=== PATIENT | female | born 1990 | race Two or more races ===

== ENCOUNTER 2017-09-17 00:30 | Inpatient (IN) | payer BC ==
[~2017-09-17] VITALS: Ht 167.6 cm; Wt 46.5 kg
[2017-09-17 00:37] VITALS: BP 135/78
[2017-09-17] MEDS ORDERED: DEXTROSE 50% 50 ML SYR IVP ONE ×2 (00:55→00:57)
[2017-09-17] MEDS ORDERED: NACL 0.9% 1,000 ML IV SCH ×2 (01:10→05:41)
[2017-09-17] MEDS ORDERED: MORPHINE SULFATE 2 MG/ML SYR IM ONE (01:10)
[2017-09-17] MEDS ORDERED: ONDANSETRON 4 MG/2 ML VIAL IVP ONE (01:10)
--- NOTE | 2017-09-17 01:13 | NUR ---
C/O SUDDEN ABD PAIN AND CHILLS/ "SHAKINESS" X1 HOUR, PT STATES PAIN STARTED WHEN SHE WOKE UP. ABD IS FLAT, FIRM, ACTIVE BS X4, C/O GENERALIZED ABD PAIN RADIATES TO SUPERPUBIC AREA. PT DENIES UTI SYMPTOMS. PT IS AAOX4, PALE IN COLOR REDNESS NOTED TO BILATERAL HANDS, POSITIVE CMS, PT STATES "FROM LUPUS." PT LAYING IN BED SHIVERING, RESTLESS, PT PROVIDED WITH BLANKETS, COMFORT NEEDS MET AT THIS TIME, WILL FOLLOW ORDERS. PMH LUPUS, RA.
[2017-09-17] MEDS ORDERED: NACL 0.9% 1,000 ML IV ONE ×2 (01:40→03:50)
[2017-09-17 01:45] LABS: HEMOGLOBIN 11.6 g/dL (12.0-16.0); MEAN CORPUSCULAR HEMOGLOBIN 26 pg (27-31); MEAN CORPUSCULAR HGB CONC 33 g/dL (33-37); MEAN CORPUSCULAR VOLUME 77 fL (80-94); RED BLOOD CELL COUNT(AUTO) 4.57 MIL/uL (4.20-5.40); RED CELL DISTRIBUTION WIDTH 14.9 % (11.6-13.7)
[2017-09-17 01:52] LABS: ANION GAP 12.6 (8-16); CARBON DIOXIDE 27.7 mmol/L (21-32); CREATININE 0.7 mg/dL (0.6-1.3); POTASSIUM 3.3 mmol/L (3.5-5.1)
[2017-09-17 01:54] LABS: PLATELET COUNT (AUTO) 50 K/uL (140-450); WHITE BLOOD COUNT (AUTO) 3.3 K/uL (4.8-10.8)
[2017-09-17 01:55] LABS: LYMPHOCYTES % (MANUAL) 16 % (20-46)
[2017-09-17 01:57] LABS: ALBUMIN 3.6 g/dL (3.4-5.0); TOTAL BILIRUBIN 0.3 mg/dL (0.0-1.0)
[2017-09-17 02:05] LABS: APPEARANCE,URINE CLEAR (CLEAR); BILIRUBIN,URINE NEGATIVE (NEGATIVE); BLOOD, URINE NEGATIVE (NEGATIVE); COLOR,URINE YELLOW (YELLOW); LEUKOCYTE ESTERASE ,URINE NEGATIVE (NEGATIVE); NITRITE, URINE NEGATIVE (NEGATIVE); UGLUCOSE 1+ (NEGATIVE)
--- NOTE | 2017-09-17 02:05 | NUR ---
PT DECLINES MORPHINE STATES PAIN IS TOLERABLE, PT IS LYING IN BED ROOMATE AT BEDSIDE PT IS CALM COOPERATIVE WILL CONTINUE TO MONITOR
[2017-09-17 02:23] LABS: RBC,URINE 0-5 (RARE) /HPF (0-5); WBC,URINE 0-5 (RARE) /HPF (0-5)
--- NOTE | 2017-09-17 03:00 | NUR ---
PT LAYIN IN BED RESTING, WILL CONTINUE TO MONITOR.
[2017-09-17] MEDS ORDERED: KETOROLAC 15 MG/ML VIAL IVP ONE (03:55)
--- NOTE | 2017-09-17 04:45 | NUR ---
PT IN BED SLEEPING, ROOMMATE AT BEDSIDE, VSS, WILL CONTINUE TO MONITOR.
--- NOTE | 2017-09-17 05:18 | NUR ---
PHYSCIAN AT BEDSIDE, EVALUATING PT.
[2017-09-17] MEDS ORDERED: HYDROcodone/APAP 7.5/325 MG 1 TAB PO PRN (05:45)
[2017-09-17] MEDS ORDERED: ACETAMINOPHEN 325 MG TAB PO PRN ×2 (05:45→12:00)
[2017-09-17] MEDS ORDERED: ONDANSETRON 4 MG/2 ML VIAL IVP PRN (05:45)
[2017-09-17] MEDS ORDERED: PIPERACILLIN/TAZOBACTAM 3.375 GM in DEXTROSE 5% 50 ML IV ONE (05:45)
[2017-09-17] MEDS ORDERED: PIPERACILLIN/TAZOBACTAM 3.375 GM VIAL IV ONE (06:04)
[2017-09-17 06:48] LABS: PROTHROMBIN TIME 11.6 secs (10.8-13.4)
--- NOTE | 2017-09-17 06:55 | NUR ---
Patient will be admitted to care of DR. GARCIA. Admited to TELE. Will go to [id number]. Belongings list completed. Report to [facility].
--- NOTE | 2017-09-17 06:55 | NUR ---
PATIENT ADMITTED TO THE UNIT FROM ER. PATIENT REPORT RECEIVED FROM ER NURSE. NO SIGNS AND SYMPTOMS OF DISTRESS NOTED. IV SITE NOTED ON RIGHT AC. BED IN LOWEST POSITION, SIDE RAILS UP AND CALL LIGHT WITHIN REACH. WILL CONTINUE TO MONITOR.
[2017-09-17 06:56] LABS: BARBITURATE, URINE NEG. ng/ml (NEG <=200); BENZODIAZEPINE, URINE NEG. ng/mL (NEG <=200); CANNABINOID, URINE NEG. ng/mL (NEG <=50); COCAINE, URINE NEG. ng/mL (NEG <=300); OPIATE, URINE NEG. ng/mL (NEG <=2000); PHENCYCLIDINE SCREEN,URINE NEG. ng/mL (NEG <=25)
[2017-09-17 07:11] LABS: CHOL/HDL RATIO 2.2 (1-4.5); FREE T4 (FREE THYROXINE) 0.91 ng/dL (0.76-1.46); MAGNESIUM 1.7 mg/dL (1.8-2.4); PHOSPHORUS 3.8 mg/dL (2.5-4.9); THYROID STIMULATING HORMONE 7.79 uIU/mL (0.34-3.74)
--- NOTE | 2017-09-17 07:20 | NUR ---
PATIENT REPORT GIVEN TO MORNING NURSE FOR CONTINUITY OF CARE. PATIENT IS IN STABLE CONDITION.
--- NOTE | 2017-09-17 07:25 | NUR ---
RECEIVED REPORT FROM AUTOCAD NURSE. PT IS AAOX4, AMBULATORY, PT HAS IV ON THE RIGHT AC, PATENT, INTACT, FLUSHING WELL, NO S/S OF RESPIRATORY DISTRESS OR DISCOMFORT NOTED, ORIENTED PT TO ROOM, DISCUSSED PLAN OF CARE WITH PT, PT VERBALIZED UNDERSTANDING, CALL LIGHT IS WITHIN REACH, WILL CONTINUE TO MONITOR.
[2017-09-17 08:00] VITALS: BP 89/42
[2017-09-17 08:53] LABS: ANION GAP 13.9 (8-16); CARBON DIOXIDE 25.3 mmol/L (21-32); CREATININE 0.7 mg/dL (0.6-1.3); POTASSIUM 4.2 mmol/L (3.5-5.1)
--- NOTE | 2017-09-17 08:59 | NUR ---
PATIENT HAS BEEN SCREENED AND CATEGORIZED LOW NUTRITION RISK. PATIENT WILL BE SEEN WITHIN 7 DAYS OF ADMISSION. 09/23/[address]
[2017-09-17 09:06] LABS: ALBUMIN 3.1 g/dL (3.4-5.0); TOTAL BILIRUBIN 0.4 mg/dL (0.0-1.0)
[2017-09-17] MEDS: LEVOFLOXACIN 750 MG/D5W PREMIX 150 ML IV SCH (09:54)
[2017-09-17] MEDS: LACTOBACILLUS RHAMNOSUS GG 1 EACH CAP PO SCH (09:55)
[2017-09-17] MEDS: DOCUSATE SODIUM 100 MG GELCAP PO SCH ×2 (09:55→20:56)
[2017-09-17] MEDS ORDERED: POTASSIUM CHLORIDE 10 MEQ TABER PO ONE (10:55)
[2017-09-17] MEDS ORDERED: MAGNESIUM OXIDE 400 MG TAB PO SCH (11:30)
[2017-09-17 12:00] VITALS: BP 106/60
[2017-09-17] MEDS ORDERED: FUROSEMIDE 20 MG TAB PO PRN (12:00)
[2017-09-17] MEDS: metroNIDAZOLE 500 MG/NS PREMIX 100 ML IV SCH ×2 (12:39→20:56)
[2017-09-17] MEDS ORDERED: DESFLURANE 240 ML BTL INH ONE (13:10)
[2017-09-17] MEDS ORDERED: SUCCINYLCHOLINE CHLORIDE 200 MG/10 ML VIAL IVP ONE (13:10)
[2017-09-17] MEDS ORDERED: DEXAMETHASONE 4 MG/ML VIAL ONE (13:10)
[2017-09-17] MEDS ORDERED: ONDANSETRON 4 MG/2 ML VIAL ONE (13:10)
[2017-09-17] MEDS ORDERED: PROPOFOL 200 MG/20 ML VIAL IV ONE (13:10)
[2017-09-17] MEDS ORDERED: ROCURONIUM 50 MG/5 ML VIAL IV ONE (13:10)
[2017-09-17] MEDS ORDERED: HYDROmorphone PFS 2 MG/ML SYR ONE (13:13)
[2017-09-17] MEDS ORDERED: fentaNYL 0.05 MG/ML VIAL ONE (13:13)
[2017-09-17] MEDS ORDERED: BUPIVACAINE-MPF 0.25% 30 ML VIAL INJ ONE (13:18)
--- NOTE | 2017-09-17 14:08 | NUR ---
CM NOTE PER MANAGER MANAGED BACK[employer] SERVICES KASEY, SHE SPOKE WITH ZEUS OF [facility] PH# [phone] WHO SAID AUTHORIZED PATIENT STAY FOR 2 DAYS AUTH# [id number] AND THERE IS NO DOUGH MOLDER HAND YET ASSIGNED AT THIS TIME BUT TO FAX REVIEWS TO [phone]. INITIAL REVIEW FAXED TO [facility] [phone] # [phone] [facility].
[2017-09-17] MEDS: DEXT 5% / NACL 0.45% 1,000 ML IV SCH (14:10)
[2017-09-17] MEDS ORDERED: MORPHINE SULFATE 2 MG/ML SYR IVP PRN (14:15)
[2017-09-17 16:00] VITALS: BP 117/75
--- NOTE | 2017-09-17 16:01 | NUR ---
PT SLEEPING WITH FAMILY AT BEDSIDE UNABLE TO PERFORM IS
--- NOTE | 2017-09-17 19:38 | NUR ---
ENDORSED PT TO SENIOR ANIMATOR NURSE FOR CONTINUITY OF CARE. PT STABLE AT THIS TIME.
--- NOTE | 2017-09-17 19:40 | NUR ---
RECEIVED REPORT FROM DAY SHIFT RN, PATIENT RESTING IN BED, AWAKE ALERT ORIENTED X4, SISTER AT THE BEDSIDE, NO S/S OF DISTRESS NOTED, RESPIRATION EVEN AND UNLABORED, IV PATENT AND INTACT, INFUSING D51/2NS AT 80ML/HR. PLAN OF CARE DISCUSSED, CALL LIGHT WITHIN REACH, SAFETY MEASURE ENSURED, WILL CONTINUE TO MONITOR.
[2017-09-17 20:00] VITALS: BP 101/61
--- NOTE | 2017-09-17 20:13 | NUR ---
PATIENT STATED SHE HAD VOIDED ALREADY
--- NOTE | 2017-09-17 21:02 | NUR ---
DUE MEDICATION GIVEN, PATIENT TOLERATED WELL. NO S/S OF DISTRESS NOTED, RESPIRATION EVEN AND UNLABORED, CALL LIGHT WITHIN REACH, SAFETY MEASURE ENSURED, WILL CONTINUE TO MONITOR.
[2017-09-18] VITALS: BP 96/52
--- NOTE | 2017-09-18 00:32 | NUR ---
PATIENT'S BOYFRIEND IS STILL AT THE BEDSIDE, HE SAID," THE BIG BOSS SAID I COULD STAY OVER NIGHT." ASKED THE CHARGE NURSE, BUT CHARGE NURSE SAID, " NO, THE BOYFRIEND CAN NOT STAY." ASKED HIM TO LEAVE DUE TO THE HOSPITAL POLICY, THE BOYFRIEND LEFT.
--- NOTE | 2017-09-18 01:06 | NUR ---
WOUND ASSESSMENT DONE, S/P LAP APPY ON 09/17/17. THREE DERMABOND ON ABDOMEN, OPEN TO AIR, NO DRAINAGE NOTED, PATIENT WAS SLEEPING, NO PAIN REPORTED.
--- NOTE | 2017-09-18 02:32 | NUR ---
PATIENT WAS SLEEPING, BUT EASY TO AROUSE. NO S/S OF DISTRESS NOTED, RESPIRATION EVEN AND UNLABORED, CALL LIGHT WITHIN REACH, SAFETY MEASURE ENSURED, WILL CONTINUE TO MONITOR.
[2017-09-18] MEDS: DEXT 5% / NACL 0.45% 1,000 ML IV SCH (02:40)
[2017-09-18 04:00] VITALS: BP 93/55
--- NOTE | 2017-09-18 04:30 | NUR ---
BED AND BREAKFAST OPERATOR NOTIFIED ME THAT PATIENT'S HR WENT DOWN TO 47, UPON ASSESSMENT, PATIENT WAS SLEEPING, EASY TO AROUSE, NO S/S OF DISTRESS NOTED, PATIENT STATED," I AM OKAY." CALL LIGHT WITHIN REACH, SAFETY MEASURE ENSURED, WILL CONTINUE TO MONITOR.
[2017-09-18] MEDS: metroNIDAZOLE 500 MG/NS PREMIX 100 ML IV SCH (05:31)
[2017-09-18] MEDS: HYDROcodone/APAP 5/325 MG 1 TAB TAB PO PRN ×2 (05:51→11:14)
[2017-09-18 07:17] LABS: ANION GAP 10.9 (8-16); CREATININE 0.7 mg/dL (0.6-1.3); POTASSIUM 3.9 mmol/L (3.5-5.1)
--- NOTE | 2017-09-18 07:30 | NUR ---
RECEIVED ON BED AAOX4. NO SOB NOTED. NO C/O PAIN AT THIS TIME. IV TO RT AC PATENT AND INTACT. CHEST CLEAR. ABDOMNE SOFT, BOWEL SOUNDS PRESENT. WITH 3 SMALL ABDOMINAL INCISIONS WITH DERMABOND, S/P LAP APPY ON 09/17/17. NO EDEMA NOTED. INSTRUCTED PT TO CALL FOR ASSISTANCE, CALL LIGHT WITHIN REACH, PT VERBALIZED UNDERSTANDING.
--- NOTE | 2017-09-18 07:45 | NUR ---
ENDORSED PLAN OF CARE TO DAY SHIFT RN, PATIENT RESTING IN BED, IN STABLE CONDITION.
[2017-09-18 07:53] LABS: WHITE BLOOD COUNT (AUTO) 1.9 K/uL (4.8-10.8)
[2017-09-18 07:54] LABS: HEMATOCRIT 29.1 % (36-48); HEMOGLOBIN 9.7 g/dL (12.0-16.0); MEAN CORPUSCULAR HEMOGLOBIN 26 pg (27-31); MEAN CORPUSCULAR HGB CONC 33 g/dL (33-37); MEAN CORPUSCULAR VOLUME 77 fL (80-94); PLATELET COUNT (AUTO) 55 K/uL (140-450); RED BLOOD CELL COUNT(AUTO) 3.77 MIL/uL (4.20-5.40); RED CELL DISTRIBUTION WIDTH 15.8 % (11.6-13.7)
[2017-09-18 08:00] VITALS: BP 94/55
[2017-09-18] MEDS ORDERED: FERROUS GLUCONATE 324 MG TAB PO SCH (08:00)
--- NOTE | 2017-09-18 08:49 | NUR ---
CM NOTE CONCURRENT REVIEW FAXED TO [facility] [phone] # [phone] [facility] 5
[2017-09-18 08:53] LABS: EOSINOPHILS % (MANUAL) 1 % (0-4); LYMPHOCYTES % (MANUAL) 27 % (20-46); MONOCYTES % (MANUAL) 2 % (5-12)
[2017-09-18] MEDS ORDERED: ASCORBIC ACID 500 MG TAB PO SCH (09:00)
[2017-09-18 09:11] LABS: LACTATE DEHYDROGENASE 125 IU/L (119-226)
[2017-09-18] MEDS: DOCUSATE SODIUM 100 MG GELCAP PO SCH (09:50)
[2017-09-18] MEDS: LACTOBACILLUS RHAMNOSUS GG 1 EACH CAP PO SCH (09:50)
[2017-09-18] MEDS: LEVOFLOXACIN 750 MG/D5W PREMIX 150 ML IV SCH (09:51)
--- NOTE | 2017-09-18 09:59 | NUR ---
follow up IS instruct not able to do due to pt sleeping and family didnt want to wake her
[2017-09-18] MEDS ORDERED: ASCO500T45 PO (10:55)
[2017-09-18] MEDS ORDERED: DOCU-299 PO (10:55)
[2017-09-18] MEDS ORDERED: ACET-2869 PO ×2 (10:55→10:59)
[2017-09-18] MEDS ORDERED: FERR-252 PO (10:55)
--- NOTE | 2017-09-18 11:50 | NUR ---
DISCHARGE PHOTO ON ABDOMINAL INCISIONS TAKEN AND DOCUMENTED.
[2017-09-18] MEDS ORDERED: ACET-9800 PO (11:57)
[2017-09-18] MEDS ORDERED: SIMETHICONE 80 MG TAB.CHEW PO SCH (12:00)
--- NOTE | 2017-09-18 13:00 | NUR ---
DISCHARGE INSTRUCTIONS AND PRESCRIPTIONS GIVEN TO PT WHICH VERBALIZED FULL UNDERSTANDING OF THE INSTRUCTIONS GIVEN AND THE NEED TO FOLLOW UP WITH PCP AND DR. DAVENPORT WITHIN 7 DAYS. PT MADE AWARE THAT ALL HER PRESCRIPTIONS ARE READY AT THER PT'S PREFERRED PHARMACY. ARM BANDS AND IV REMOVED, CANNULA TIP INTACT.
--- NOTE | 2017-09-18 13:10 | NUR ---
PT ESCORTED TO THE PARKING LOT IN STABLE CONDITION BY [employer]. PT AMBULATORY. NO COMPLAINTS MADE. PT D/C HOME WITH FATHER.
[2017-09-18 15:33] LABS: FOLIC ACID 13.3 ng/mL (>3.0)
[2017-09-20 06:41] LABS: LD1 FRACTION 23 % (17-32); LD2 FRACTION 32 % (25-40); LD3 FRACTION 22 % (17-27); LD4 FRACTION 12 % (5-13); LD5 FRACTION 11 % (4-20)
--- NOTE | 2017-09-20 15:24 | NUR ---
CM NOTE DISCHARGE SUMMARY FAXED TO [facility] [phone] # [phone]
== END 2017-09-18 13:10 | disposition home or self-care (01) | DRG 342 ==
LOC: MED 00:30 → MTU 05:45
PROVIDERS: ADMIT Family Medicine; ATTEND Family Medicine
PROC: 30233R1 Transfusion of Nonautologous Platelets into Peripheral Vein, Percutaneous Approach (ICD-10-PCS; 2017-09-17)
PROC: 0DTJ4ZZ Resection of Appendix, Percutaneous Endoscopic Approach (ICD-10-PCS; principal; 2017-09-17 12:30)
DX: K35.80 Unspecified acute appendicitis (principal); D61.818 Other pancytopenia; M32.9 Systemic lupus erythematosus, unspecified; E87.6 Hypokalemia; F12.90 Cannabis use, unspecified, uncomplicated; D50.9 Iron deficiency anemia, unspecified; M06.9 Rheumatoid arthritis, unspecified; N91.2 Amenorrhea, unspecified
CPT/HCPCS: 36415; 71045; 80048; 80053; 80305; 81001; 82150; 82374; 82607; 82728; 82746; 83036; 83540; 83605; 83625; 83690; 83735; 83880; 84100; 84439; 84443; 84484; 84703; 85025; 85045; 85610; 85651; 85730; 86886; 86900; 86901; 87040; 87081; 93005; 96361; 96365; 96375; 99285; J0330; J1100; J1170; J1885; J1956; J2270; J2405; J2543; J2704; J3010; J3490; J7030; P9035; Q0092; Q0163